=== PATIENT | female | born 1990 | race Hispanic/Latino ===

== ENCOUNTER → 2024-01-22 | Outpatient (CLI) | payer MEDICAID ==
--- NOTE | 2024-01-23 18:57 | HMCSR ---
APPROVED REPORT EXAM: Two-dimensional and M-mode echocardiogram with Doppler and color Doppler. INDICATION ICD: R00.2 Palpitations 2D Dimensions RVDd3.5 cmLVEF(%)62.9 (>50%)LVED Vol(simp.)69.8 mL IVSd0.5 (0.7-1.1cm)FS(%)33 %LVES Vol(simp.)23.7 mL LVDd3.6 (3.8-5.6cm)LA (2D)3.3 (1.6-4.0cm)LVEF(%, simp.)66 % PWd0.7 (0.7-1.1cm)Ao Root(2D)2.3 (2.0-3.7cm)LA ESV INDEX (4CH)23.60 mL/m2 IVSs0.8 cmLVOT diam1.8 (1.8-2.4cm)LA ESV INDEX (2CH)10.90 mL/m2 LVDs2.4 (2.5-4.0cm) PWs1.3 cm M-Mode Dimensions EPSS0.4 cm LA (MM)3.4 (1.6-4.0cm) Ao Root(MM)2.5 (2.0-3.7cm) Aortic Valve AoV VTI0.3 mAo Mean GR5.0 mmHgLVOT VTI0.27 m SANTIAGO (VMAX)2.4 cm2AVA (VTI) 2.4 cm2 Mitral Valve MV E Vmax70.8 cm/sDECEL Lcro012 ms MV A Vmax50.9 cm/sP 1/2 T46 ms E/A ratio1.4MVA (PHT)4.8 cm2 TDI E/E' Medial8.4E/E' Lateral3.7 Medial E' Peak V8.40 cm/sLateral E' Peak V19.00 cm/s Pulmonary Valve PV VTI0.25 mPV Mean GR3 mmHg Tricuspid Valve TR Vmax2.2 m/s TR Peak GR19.8 mmHg Left Ventricle The left ventricle is normal size. There is normal LV segmental wall motion. There is normal left jose armando tricular wall thickness. LVEF is 60-65%. The left ventricular diastolic function is normal. Right Ventricle The right ventricle is normal size. The right ventricular systolic function is normal. Atria The left atrium size is normal. The right atrium size is normal. Aortic Valve The aortic valve is normal in structure. No aortic regurgitation is present. There is no aortic valvu lar stenosis. Mitral Valve The mitral valve is normal in structure. There is no mitral valve regurgitation noted. There is no mi tral valve stenosis. Tricuspid Valve The tricuspid valve is normal in structure. There is no tricuspid valve regurgitation noted. Pulmonic Valve The pulmonary valve is normal in structure. There is no pulmonic valvular regurgitation. Great Vessels The aortic root is normal in size. The IVC is normal in size and collapses >50% with inspiration. Pericardium There is no pericardial effusion. Other Information Quality : Fair Conclusion LVEF is 60-65%. The left ventricular diastolic function is normal. There is normal left ventricular wall thickness. The left ventricle is normal size. There is normal LV segmental wall motion. There is no pericardial effusion. Normal pulmonary pressure Study quality was adequate
== END | disposition home or self-care (01) ==
LOC: RAH 13:22
PROVIDERS: ATTEND Internal Medicine Cardiovascular Disease
DX: R00.2 Palpitations (principal)
CPT/HCPCS: 93306